=== PATIENT | female | born 2000 | race Caucasian/White ===

== ENCOUNTER 2020-11-15 06:13 | Inpatient (IN) ==
[2020-11-15] MEDS ORDERED: PITOCIN IVP ONE (06:23)
[2020-11-15] MEDS ORDERED: REGLAN INJ 10 MG VIAL IVP PRN ×2 (06:23→12:51)
[2020-11-15] MEDS ORDERED: PHENERGAN INJ 25 MG IM PRN ×3 (06:23→14:02)
[2020-11-15] MEDS ORDERED: STADOL INJ IVP PRN (06:27)
[2020-11-15] MEDS ORDERED: BETADINE SOLN ONE (06:30)
[2020-11-15] MEDS ORDERED: D5LR 1L W PITOCIN 10 UNITS/L 10 UNITS/1,000 ML BAG IV ONE (06:30)
[2020-11-15] MEDS ORDERED: D5 1/2 NS 1L W PITOCIN 20 UNITS/L 20 UNITS/1,000 ML BAG IV ONE ×2 (06:30→13:24)
[2020-11-15] MEDS ORDERED: D5LR 1L W PITOCIN 10 UNITS/L 10 UNITS/1,000 ML BAG IV PRN (07:00)
[2020-11-15] MEDS ORDERED: D5 1/2 NS 1000 ML 1,000 ML IV SCH (07:00)
[2020-11-15 08:07] LABS: URIC ACID 4.2 mg/dL (2.6-6.0)
[2020-11-15] MEDS ORDERED: PITOCIN ONE ×2 (11:12→11:45)
[2020-11-15] MEDS ORDERED: DILAUDID INJ ONE (11:12)
[2020-11-15] MEDS ORDERED: NS 1000 ML 1,000 ML ONE (11:13)
[2020-11-15] MEDS ORDERED: LR 1000 ML IV 1,000 ML IV ONE ×2 (11:13→11:16)
[2020-11-15] MEDS ORDERED: ANCEF 1 GRAM IV PREMIX* 2 G/100 ML BAG IV ONE (11:16)
[2020-11-15] MEDS ORDERED: EPHEDRINE SULFATE INJ ONE (11:45)
[2020-11-15] MEDS ORDERED: XYLOCAINE 2 % (PLAIN) ONE (11:45)
[2020-11-15] MEDS ORDERED: ZOFRAN INJ 4 MG VIAL ONE (11:45)
[2020-11-15] MEDS ORDERED: ZOFRAN INJ 4 MG VIAL IVP PRN ×2 (12:51→14:02)
[2020-11-15] MEDS ORDERED: DILAUDID INJ IVP PRN (12:51)
[2020-11-15] MEDS ORDERED: BENADRYL INJ 50 MG VIAL IVP PRN (12:51)
[2020-11-15] MEDS ORDERED: D5 1/2 NS 1L W PITOCIN 20 UNITS/L 20 UNITS/1,000 ML BAG IV PRN (14:02)
[2020-11-15] MEDS ORDERED: PERCOCET TAB 5/325 MG PO PRN (14:02)
[2020-11-15] MEDS ORDERED: DERMOPLAST PAIN RELIEF SPRAY TOP PRN (14:02)
[2020-11-15] MEDS ORDERED: AMBIEN PO PRN (14:02)
[2020-11-15] MEDS ORDERED: MILK OF MAGNESIA PO PRN (14:02)
[2020-11-15] MEDS ORDERED: MOTRIN TAB 800 MG PO PRN (14:02)
[2020-11-16 06:22] LABS: HEMOGLOBIN 8.7 g/dL (12.0-16.0)
[2020-11-16] MEDS ORDERED: ADACEL or BOOSTRIX TDaP VACCINE IM ONE (06:25)
--- NOTE | 2020-11-16 08:38 | NOTE.PROBC ---
Progress Note OB-C/S Subjective Data Subjective: No complaints, decreased lochia. Tolerating regular diet. No N/V. Ambulating well. Concepcion draining well. Pain under good control with toradol. Objective Data Result Diagrams: 11/16/20 05:48 Objective Data: CV= RRR no MRG Lungs=CTA Bilaterally Abd=(+) BS, soft, ND, appropriately tender near incision. Bandage removed. Incision clean/dry/intact, no erythema, no bleeding, no discharge. Dermabond/Stitches intact. Fundus firm/NT/ at { } cm below umbilicus. Ext= No edema, NT, No Cords. Graduated Compression Stockings/Sequential Compression Devices Bilaterally. Assessment Assessment: stable and improving Plan (1) Gestational [-induced] hypertension without significant proteinuria, complicating the puerperium: Plan: possibly go home later today or tomorrow
[2020-11-16] MEDS ORDERED: PRENATAL PLUS PO SCH (09:00)
[2020-11-16] MEDS ORDERED: TORADOL 30 MG VIAL IVP PRN (12:15)
[2020-11-16 16:08] VITALS: BP 130/80
== END 2020-11-16 15:25 | disposition home or self-care (01) | DRG 788 ==
LOC: LD 06:13 → OBS 14:38
PROVIDERS: ADMIT Obstetrics & Gynecology; ATTEND Obstetrics & Gynecology
DX: Z37.0 Single live birth; O14.93 Unspecified pre-eclampsia, third trimester; Z23 Encounter for immunization; Z3A.37 37 weeks gestation of pregnancy; O13.5 Gestational [pregnancy-induced] hypertension without significant proteinuria, complicating the puerperium